=== PATIENT | male | born 1985 | race Hispanic/Latino ===

== ENCOUNTER 2019-04-20 06:11 | Day surgery (SDC) | payer OTHER ==
[~2019-04-20] VITALS: Ht 182.9 cm; Wt 110.2 kg
[~2019-04-20 06:11] MED LIST: AMOX500T2 PO; BUSP-29 PO; BUTA-198 PO; CYMB60CA3 PO; DOXY100T PO; EMLA CREAM 5GM (LIDOCAINE/PRILOCAINE) TOP PRN; HYDR50CA2 PO; HYDR50TA70 PO; LIDOCAINE 1% MDV 20ML VIAL SQ PRN; LUNE1TAB8 PO; OMEP-218 PO; PROP20TA72 PO; VITA1CAP25 PO; WELL100T2 PO
[2019-04-20] MEDS ORDERED: EMLA CREAM 5GM (LIDOCAINE/PRILOCAINE) As Ordered ONE (06:50)
[2019-04-20] MEDS ORDERED: ROCURONIUM BROMIDE 50 MG/5 ML VIAL As Ordered ONE (06:53)
[2019-04-20] MEDS ORDERED: PROPOFOL 200 MG/20 ML VIAL As Ordered ONE (06:53)
[2019-04-20] MEDS ORDERED: ONDANSETRON 4MG/2ML VIAL (J2405) As Ordered ONE (06:53)
[2019-04-20] MEDS ORDERED: LIDOCAINE 2% INJ 100 MG/5 ML SDV (FOR ANES.) As Ordered ONE (06:53)
[2019-04-20] MEDS ORDERED: dexameTHASONE 4 MG/ML 1ML VIAL (J1100) As Ordered ONE (06:53)
[2019-04-20] MEDS ORDERED: MIDAZOLAM INJ 2 MG/2 ML VIAL (J2250) As Ordered ONE (06:54)
[2019-04-20] MEDS ORDERED: KETOROLAC 60 MG/2 ML VIAL (J1885) As Ordered ONE (06:54)
[2019-04-20] MEDS ORDERED: fentaNYL 250 MCG/5 ML INJECTION (J3010) As Ordered ONE (06:54)
[2019-04-20] MEDS ORDERED: TRIAMCINOLONE ACETONIDE SUSP 40 MG/ML VIAL (J3301) As Ordered ONE ×2 (07:09→08:24)
[2019-04-20] MEDS ORDERED: KETAMINE HCL 200 MG/20 ML VIAL As Ordered ONE (07:29)
[2019-04-20] MEDS ORDERED: GLYCOPYRROLATE INJ 0.2 MG/ML 2 ML VIAL As Ordered ONE (07:29)
[2019-04-20] MEDS ORDERED: LR 1,000 ML IV ONE (07:30)
[2019-04-20] MEDS ORDERED: fentaNYL 100 MCG/2 ML INJECTION (J3010) IV PRN (09:00)
[2019-04-20] MEDS ORDERED: ONDANSETRON 4MG/2ML VIAL (J2405) IV PRN (09:00)
[2019-04-20] MEDS ORDERED: HYDROMORPHONE HCL 0.5 MG/ 0.5 ML SYRINGE (J1170 PER 1) IV PRN (09:00)
[2019-04-20] MEDS ORDERED: PERCOCET 5MG/325MG TAB PO PRN (09:00)
[2019-04-20] MEDS ORDERED: LR 1,000 ML IV SCH ×2 (09:00→09:15)
[2019-04-20] MEDS ORDERED: ACETAMINOPH W/CODEINE #3 TAB UD PO PRN (09:15)
--- NOTE | 2019-04-20 10:01 | RO ---
DATE OF PROCEDURE: 04/20/2019 PREOPERATIVE DIAGNOSIS: Chronic parotid sialadenitis. POSTOPERATIVE DIAGNOSIS: Chronic parotid sialadenitis. OPERATIVE PROCEDURE: Parotid sialendoscopy. FINDINGS: There was a purulent discharge coming out of both parotid ducts. The duct itself was stenotic. SURGEON: Jayro Hernandez MD SLAG DUMPER: ANESTHESIA: DESCRIPTION OF PROCEDURE: Under general anesthesia was the patient intubated, the patient was draped in the usual manner. I started first on the right side. I identified the parotid duct and then dilated it. I could not thread the smallest catheter through the duct so I used a dilator and dilated it up. Once this was done then I could insert the endoscope. I examined the area. There was a lot of scarring. I could not see a stone. I put Kenalog into the parotid duct. The same procedure and findings were carried out on the left side. The patient tolerated the procedure well and was transferred to the recovery room in excellent condition. Minimal blood loss.
[2019-04-20 12:40] VITALS: BP 130/80
== END 2019-04-20 13:09 | disposition home or self-care (01) ==
LOC: M SDC 06:11
PROVIDERS: ATTEND Otolaryngology
DX: K11.23 Chronic sialoadenitis (principal); K21.9 Gastro-esophageal reflux disease without esophagitis; G47.30 Sleep apnea, unspecified; F43.10 Post-traumatic stress disorder, unspecified; F41.9 Anxiety disorder, unspecified; Z79.899 Other long term (current) drug therapy
CPT/HCPCS: 42699; J1100; J1885; J2250; J2405; J3010; J3301

== ENCOUNTER 2019-08-19 13:59 | Outpatient (RCR) | payer OTHER ==
[~2019-08-19 13:59] MED LIST changes: -EMLA CREAM 5GM (LIDOCAINE/PRILOCAINE) TOP PRN; -LIDOCAINE 1% MDV 20ML VIAL SQ PRN
== END 2019-08-20 ==
LOC: M ST 13:59
DX: G89.4 Chronic pain syndrome (principal); R47.82 Fluency disorder in conditions classified elsewhere

== ENCOUNTER 2019-09-14 07:49 | Outpatient (RCR) | payer OTHER | END 2019-09-18 | disposition home or self-care (01) | LOC: M ST 07:49 | PROVIDERS: ATTEND Internal Medicine | DX: R47.9 Unspecified speech disturbances (principal) ==

== ENCOUNTER 2019-10-18 08:27 | Outpatient (RCR) | payer OTHER | END 2019-10-19 | LOC: M ST 08:27 | PROVIDERS: ATTEND Internal Medicine Pulmonary Disease | DX: Z51.89 Encounter for other specified aftercare (principal); F98.5 Adult onset fluency disorder ==

== ENCOUNTER 2019-12-16 07:50 | Outpatient (RCR) | payer OTHER | END 2019-12-19 | LOC: M ST 07:50 | PROVIDERS: ATTEND Family Medicine | DX: F80.81 Childhood onset fluency disorder (principal) ==

== ENCOUNTER 2019-12-29 09:47 | Outpatient (RCR) | payer OTHER | END 2020-01-18 | LOC: M ST 09:47 | PROVIDERS: ATTEND Family Medicine | DX: F98.5 Adult onset fluency disorder (principal) ==